=== PATIENT | female | born 2000 | race Two or more races ===

== ENCOUNTER 2022-09-23 18:27 | Emergency (ER) | payer OTHER ==
[~2022-09-23] VITALS: Ht 162.6 cm; Wt 65.8 kg
[2022-09-23] MEDS ORDERED: HALOPERIDOL LACTATE INJ 5 MG/ML VIAL ONE (18:44)
[2022-09-23] MEDS ORDERED: diphenhydrAMINE HCL 50 MG/ML VIAL ONE (18:44)
[2022-09-23] MEDS ORDERED: LORAZEPAM INJ 2 MG/ML VIAL ONE (18:45)
--- NOTE | 2022-09-23 18:45 | NUR ---
XIMENA KWON From Home Escorted by [employer] [place] [id number]. family called intoxicated/unruly/screaming/cursing". PLACED IN BED, SCREAMING- CURSING. WILL CONTINUE TO MONITOR.
[2022-09-23] MEDS ORDERED: LORAZEPAM INJ 2 MG/ML VIAL IM ONE (19:00)
[2022-09-23] MEDS ORDERED: HALOPERIDOL LACTATE INJ 5 MG/ML VIAL IM ONE (19:00)
[2022-09-23] MEDS ORDERED: diphenhydrAMINE HCL 50 MG/ML VIAL IM ONE (19:00)
[2022-09-23] MEDS ORDERED: MIDAZOLAM HCL 2 MG/2ML VIAL IM ONE (19:30)
--- NOTE | 2022-09-24 01:52 | NUR ---
PT REQUESTING TO BE DISCHARGED HOME. Patient discharged to home in stable condition. Written and verbal after care instructions given. Patient verbalizes understanding of instruction.Patient is awake and alert to self, day, and place. PT ambulatory with a steady gait
[2022-09-24 02:04] VITALS: BP 111/68
== END 2022-09-24 02:05 | disposition home or self-care (01) ==
LOC: ER 18:30
DX: F10.129 Alcohol abuse with intoxication, unspecified (principal); R45.1 Restlessness and agitation; Y90.9 Presence of alcohol in blood, level not specified
CPT/HCPCS: 99284; 96372 ×2; 82962; J2060; J1200; J1630